=== PATIENT | male | born 1980 | race American Indian/Alaskan Native ===

== ENCOUNTER 2020-06-06 23:29 | Emergency (ER) | payer SELFPAY ==
[2020-06-06] MEDS ORDERED: ASPIRIN 325 MG TAB PO ONE (23:50)
[2020-06-07 00:33] LABS: Basophils # (Auto) 0.1 K/mm3 (0.0-0.1); Basophils % (Auto) 1.7 % (0.0-1.8); Eosinophils # (Auto) 0.1 K/mm3 (0.0-0.4); Eosinophils % (Auto) 1.5 % (0.0-4.3); Hematocrit 39.3 % (35.5-45.6); Hemoglobin 13.3 gm/dl (11.8-15.2); Lymphocytes # (Auto) 1.2 K/mm3 (1.2-5.4); Lymphocytes % (Auto) 15.9 % (13.4-35.0); Mean Corpuscular HGB Conc 34 % (32-34); Mean Corpuscular Volume 100 fl (84-94); Monocytes # (Auto) 0.7 K/mm3 (0.0-0.8); Platelet Count 210 K/mm3 (140-440); Red Blood Count 3.93 M/mm3 (3.65-5.03); Red Cell Distribution Width 13.3 % (13.2-15.2)
--- NOTE | 2020-06-07 00:38 | XRay Report ---
CHEST 1 VIEW INDICATION: Chest Pain. COMPARISON: None. FINDINGS: Support devices: None. Heart: Normal. Lungs/Pleura: No acute pulmonary or pleural findings. IMPRESSION: 1. No acute findings. Signer Name: Rigoberto Milner MD Signed: 06/07/2020 12:33 AM Workstation Name: [id number]
[2020-06-07 00:39] LABS: BUN/Creatinine Ratio 16; Blood Urea Nitrogen 14 mg/dL (9-20); Calcium 10.2 mg/dL (8.4-10.2); Hemolysis Index 7
[2020-06-07] MEDS ORDERED: POTASSIUM CHLORIDE ER 20 MEQ TAB PO ONE (04:48)
--- NOTE | 2020-06-07 05:29 | Emergency Department Report ---
ED General Adult HPI - General Chief complaint: High BP Stated complaint: CHEST PAIN Source: patient Mode of arrival: Ambulatory Limitations: No Limitations - History of Present Illness Initial comments: Patient is a 39-year-old -Ben[place] male with a history of cannabis abuse who presents to the ED with complaint of acute onset persistent elevated blood pressure and left-sided chest pressure and tightness for the last 12 hours intermittently. Patient states that he has never been diagnosed with hypertension but he felt scared, anxious with a left-sided chest wall tightness and came to the ED for evaluation. Patient states that the last time he smoked cannabis was 2 weeks ago. Patient denies dizziness, syncope, headache, shortness of breath, cough, fever, chills, change in vision, syncope, seizures, palpitations, back pain, abdominal pain, nausea and vomiting or diarrhea and change in vision. MD Complaint: elevated BP; Chest tightness -: Sudden, hour(s) (12) Location: chest Radiation: non-radiation Severity scale (0 -10): 3 Quality: aching, dull Consistency: intermittent Improves with: none Worsens with: none Associated Symptoms: denies other symptoms, chest pain (Chest tightness). denies: confusion, cough, diaphoresis, fever/chills, headaches, loss of appetite, malaise, rash, seizure, shortness of breath, syncope, weakness, other - Related Data Previous Rx's Medication Instructions Recorded Last Taken Type HYDROcodone/APAP 5-325 [[place]orte 1 each PO Q6HR PRN #15 tablet 04/23/14 Unknown Rx 5/325] Sulfamethoxazole/Trimethoprim 1 each PO BID #14 tablet 04/23/14 Unknown Rx [Bactrim Ds] Ibuprofen [Motrin] 600 mg PO Q8H PRN #20 tablet 06/07/20 Unknown Rx amLODIPine 10 mg PO DAILY #30 tab 06/07/20 Unknown Rx hydrOXYzine PAMOATE [Vistaril] 25 mg PO Q12HR PRN #24 capsule 06/07/20 Unknown Rx Allergies Allergy/AdvReac Type Severity Reaction Status Date / Time No Known Allergies Allergy Verified 04/22/14 23:35 ED Review of Systems ROS: Stated complaint: CHEST PAIN Other details as noted in HPI Constitutional: other (Elevated blood pressure). denies: chills, fever Eyes: denies: eye pain, eye discharge, vision change ENT: denies: ear pain, throat pain Respiratory: denies: cough, shortness of breath, wheezing Cardiovascular: chest pain (chest tightness). denies: palpitations Endocrine: no symptoms reported Gastrointestinal: denies: abdominal pain, nausea, vomiting, diarrhea Genitourinary: denies: urgency, dysuria Musculoskeletal: denies: back pain, joint swelling, arthralgia Skin: denies: rash, lesions Neurological: denies: headache, weakness, paresthesias Psychiatric: anxiety. denies: depression, auditory hallucinations, visual hallucinations, homicidal thoughts, suicidal thoughts Hematological/Lymphatic: denies: easy bleeding, easy bruising ED Past Medical Hx - Past Medical History Previous Medical History?: No Hx Hypertension: No Hx CVA: No Hx Heart Attack/AMI: No Hx Congestive Heart Failure: No Hx Diabetes: No Hx Deep Vein Thrombosis: No Hx Pulmonary Embolism: No Hx GERD: No Hx Liver Disease: No Hx Renal Disease: No Hx Sickle Cell Disease: No Hx Arthritis: No Hx Headaches / Migraines: No Hx Seizures: No Hx Kidney Stones: No Hx Psychiatric Treatment: No Hx Asthma: No Hx COPD: No Hx Tuberculosis: No Hx Dementia: No Hx HIV: No - Surgical History Past Surgical History?: Yes Hx Coronary Stent: No Hx Open Heart Surgery: No Hx Pacemaker: No Hx Internal Defibrillator: No Hx Cholecystectomy: No Hx Appendectomy: No Hx Breast Surgery: No Additional Surgical History: Skin graft bilateral arms - Social History Smoking Status: Current Every Day Smoker Substance Use Type: Marijuana - Medications Home Medications: Home Medications Medication Instructions Recorded Confirmed Last Taken Type HYDROcodone/APAP 5-325 [[place] 1 each PO Q6HR PRN #15 tablet 04/23/14 Unknown Rx 5/325] Sulfamethoxazole/Trimethoprim 1 each PO BID #14 tablet 04/23/14 Unknown Rx [Bactrim Ds] Ibuprofen [Motrin] 600 mg PO Q8H PRN #20 tablet 06/07/20 Unknown Rx amLODIPine 10 mg PO DAILY #30 tab 06/07/20 Unknown Rx hydrOXYzine PAMOATE [Vistaril] 25 mg PO Q12HR PRN #24 capsule 06/07/20 Unknown Rx ED Physical Exam - General Limitations: No Limitations General appearance: alert, in no apparent distress - Head Head exam: Present: atraumatic, normocephalic, normal inspection - Eye Eye exam: Present: normal appearance, PERRL, EOMI Pupils: Present: normal accommodation - ENT ENT exam: Present: normal exam, normal orophraynx, mucous membranes moist, TM's normal bilaterally, normal external ear exam - Neck Neck exam: Present: normal inspection, full ROM - Respiratory Respiratory exam: Present: normal lung sounds bilaterally, chest wall tenderness (Palpable mild reproducible diffuse chest wall tenderness). Absent: respiratory distress, wheezes, rales, rhonchi, accessory muscle use, decreased breath sounds, prolonged expiratory - Cardiovascular Cardiovascular Exam: Present: regular rate, normal rhythm, normal heart sounds. Absent: systolic murmur, diastolic murmur, rubs, gallop - GI/Abdominal GI/Abdominal exam: Present: soft, normal bowel sounds. Absent: tenderness, guarding, rebound, hyperactive bowel sounds, hypoactive bowel sounds, organomegaly - Extremities Exam Extremities exam: Present: normal inspection, full ROM, normal capillary refill - Back Exam Back exam: Present: normal inspection, full ROM. Absent: tenderness, CVA tenderness (R), CVA tenderness (L), muscle spasm, paraspinal tenderness, vertebral tenderness - Neurological Exam Neurological exam: Present: alert, oriented X3, CN II-XII intact, normal gait, reflexes normal - Psychiatric Psychiatric exam: Present: normal affect, normal mood, anxious - Skin Skin exam: Present: warm, dry, intact, normal color. Absent: rash ED Course Vital Signs 06/06/20 06/07/20 23:45 03:22 Temperature 98.9 F Pulse Rate 98 H 68 Respiratory 18 16 Rate Blood Pressure 188/115 Blood Pressure 155/109 [Right] O2 Sat by Pulse 98 99 Oximetry ED Medical Decision Making - Lab Data Result diagrams: 06/06/20 23:58 06/06/20 23:58 - EKG Data EKG shows normal: sinus rhythm Rate: normal - EKG Data Interpretation: normal EKG 06/07/20 05:34 EKG shows normal sinus rhythm with a ventricular rate of [address] or T wave abnormalities. - Radiology Data Radiology results: report reviewed, image reviewed Findings [facility] [address] [place] [address] XRay Report Signed Patient: ADELFO GRIMM MR#: [id number] : 1980 Acct:[id number] Age/Sex: 39 / M ADM Date: 06/06/20 Loc: ED Attending Dr: Ordering Physician: BLANCA MARIE MD Date of Service: 06/06/20 Procedure(s): XR chest 1V ap Accession Number(s): [id number] cc: BLANCA MARIE MD Fluoro Time In Minutes: CHEST 1 VIEW INDICATION: Chest Pain. COMPARISON: None. FINDINGS: Support devices: None. Heart: Normal. Lungs/Pleura: No acute pulmonary or pleural findings. IMPRESSION: 1. No acute findings. Signer Name: Rigoberto Milner MD Signed: 06/07/2020 12:33 AM Workstation Name: [id number] Transcribed By: SW Dictated By: Rigoberto Milner MD Electronically Authenticated By: Rigoberto Milner MD Signed Date/Time: 06/07/2032 DD/ TD/TT: - Medical Decision Making This is a 39-year-old -Ben[place] male with a history of cannabis abuse who presents to the ED with complaint of acute onset persistent elevated blood pressure and left-sided chest pressure and tightness for the last 12 hours intermittently. Patient states that he has never been diagnosed with hypertension but he felt scared, anxious with a left-sided chest wall tightness and came to the ED for evaluation. Patient states that the last time he smoked cannabis was 2 weeks ago. In the ED, patient is alert and oriented x3 and is not in distress. Patient was treated with aspirin in the ED. Chest x-ray shows no acute cardiopulmonary abnormalities or pneumonitis. The EKG shows normal sinus rhythm with a ventricular rate of [address] or T wave abnormalities. Lab test results were reviewed and are all nonactionable includ ing initial and repeat troponin levels. Patient however had mild hypokalemia of 3.3 mmol/L for which the patient was treated in the ED with potassium chloride 40 mEq p.o. x1. Patient's heart score is 1, and he is PERC negative per Wells criteria. On reevaluation, patient blood pressure improved but was still slightly elevated. Patient was discharged home on prescription of amlodipine and was given a referral to [facility] for follow-up in 7 to 10 days for reevaluation. Patient was advised to return to the ED immediately if symptoms get worse. - Differential Diagnosis ACS; pneumonia; bronchitis; anxiety; PE; dissection; costochondritis Critical care attestation.: If time is entered above; I have spent that time in minutes in the direct care of this critically ill patient, excluding procedure time. ED Disposition Clinical Impression: Uncontrolled stage 2 hypertension, Acute nonspecific chest pain with low risk of coronary artery disease, Acute costochondritis, Anxiety as acute reaction to exceptional stress Disposition: DC-01 TO HOME OR SELFCARE Is pt being admited?: No Does the pt Need Aspirin: No Condition: Stable Instructions: Hypertension (ED), Chest Pain (ED), Generalized Anxiety Disorder (ED), Costochondritis (ED) Additional Instructions: All lab test results were reviewed and are all nonactionable. Chest x-ray shows no acute cardiopulmonary abnormalities or pneumonitis. Therefore take medication with food, drink plenty of fluids and follow-up with your primary care physician in 7 to 10 days for reevaluation. Return to the ED immediately if symptoms get worse. Prescriptions: amLODIPine 10 mg PO DAILY #30 tab Ibuprofen [Motrin] 600 mg PO Q8H PRN #20 tablet PRN Reason: Pain hydrOXYzine PAMOATE [Vistaril] 25 mg PO Q12HR PRN #24 capsule PRN Reason: Anxiety Referrals: [facility] [Provider Group] - 7-10 days Time of Disposition: 05:28 Print Language: LATVIAN
[2020-06-07 06:43] VITALS: BP 160/92
== END 2020-06-07 06:00 | disposition home or self-care (01) ==
LOC: ED 23:29
DX: F41.1 Generalized anxiety disorder (principal); F43.0 Acute stress reaction; M94.0 Chondrocostal junction syndrome [Tietze]; I10 Essential (primary) hypertension; R07.9 Chest pain, unspecified; F11.10 Opioid abuse, uncomplicated; F17.200 Nicotine dependence, unspecified, uncomplicated; F12.90 Cannabis use, unspecified, uncomplicated; Z79.899 Other long term (current) drug therapy; Z98.890 Other specified postprocedural states
CPT/HCPCS: 36415; 71045; 80048; 84484; 85025; 93005